=== PATIENT | male | born 1960 | race Hispanic/Latino ===

== ENCOUNTER 2022-06-10 07:55 | Outpatient (CLI) | payer MEDICARE | END 2022-06-10 07:56 | disposition home or self-care (01) | LOC: CSHMRI 07:55 | PROVIDERS: ATTEND Psychiatry & Neurology Neurology | DX: M54.2 Cervicalgia (principal); M47.812 Spondylosis without myelopathy or radiculopathy, cervical region | CPT/HCPCS: 72141 ==